=== PATIENT | female | born 1955 | race Caucasian/White ===

== ENCOUNTER 2023-03-03 06:44 | Outpatient (RCR) | payer MEDICARE, SELFPAY | END 2023-03-03 23:59 | disposition home or self-care (01) | LOC: RPT 06:44 | PROVIDERS: ATTENDING PHYSICIAN Physician Assistant Medical; FAMILY PHYSICIAN Family Medicine | DX: M54.16 Radiculopathy, lumbar region (principal); M48.062 Spinal stenosis, lumbar region with neurogenic claudication; Z98.1 Arthrodesis status | CPT/HCPCS: 97010; 97110; 97112; 97535 ==

== ENCOUNTER 2023-03-31 06:33 | Outpatient (RCR) | payer MEDICARE, SELFPAY | END 2023-04-05 23:59 | disposition home or self-care (01) | LOC: RPT 06:33 | PROVIDERS: ATTENDING PHYSICIAN Physician Assistant Medical; FAMILY PHYSICIAN Family Medicine | DX: Z47.89 Encounter for other orthopedic aftercare (principal); M54.16 Radiculopathy, lumbar region; M48.062 Spinal stenosis, lumbar region with neurogenic claudication; Z73.6 Limitation of activities due to disability; R26.2 Difficulty in walking, not elsewhere classified; M62.81 Muscle weakness (generalized); Z98.1 Arthrodesis status | CPT/HCPCS: 97010; 97110; 97112; 97535 ==

== ENCOUNTER → 2023-05-21 07:28 | Outpatient (REF) | payer MEDICARE, SELFPAY | LOC: MRI 07:28 | PROVIDERS: ATTENDING PHYSICIAN Orthopaedic Surgery Orthopaedic Surgery of the Spine; FAMILY PHYSICIAN Family Medicine | DX: M48.062 Spinal stenosis, lumbar region with neurogenic claudication (principal); M54.16 Radiculopathy, lumbar region | CPT/HCPCS: 72158; A9575 ==

== ENCOUNTER → 2023-07-02 08:24 | Outpatient (REF) | payer MEDICARE, SELFPAY | LOC: RAD 08:24 | PROVIDERS: ATTENDING PHYSICIAN Specialist; FAMILY PHYSICIAN Family Medicine | DX: M25.551 Pain in right hip (principal) | CPT/HCPCS: 73502 ==

== ENCOUNTER → 2023-07-09 07:33 | Outpatient (REF) | payer MEDICARE, SELFPAY | LOC: EMG 07:33 | PROVIDERS: ATTENDING PHYSICIAN Specialist; FAMILY PHYSICIAN Family Medicine | DX: R20.2 Paresthesia of skin (principal) | CPT/HCPCS: 95886; 95909 ==

== ENCOUNTER → 2023-12-03 07:40 | Outpatient (REF) | payer MEDICARE, SELFPAY | LOC: RAD 07:40 | PROVIDERS: ATTENDING PHYSICIAN Orthopaedic Surgery; FAMILY PHYSICIAN Family Medicine | DX: M96.0 Pseudarthrosis after fusion or arthrodesis (principal) | CPT/HCPCS: 72131 ==

== ENCOUNTER → 2024-05-22 12:42 | Outpatient (REF) | payer MEDICARE, SELFPAY | LOC: RAD 12:42 | PROVIDERS: FAMILY PHYSICIAN Family Medicine | DX: N81.2 Incomplete uterovaginal prolapse (principal) | CPT/HCPCS: 76830; 76856 ==

== ENCOUNTER 2024-08-13 13:53 | Emergency (ER) | payer MEDICARE, SELFPAY ==
[2024-08-13 14:00] VITALS: BP 185/116; BMI 19.8
[2024-08-13 14:01] VITALS: BP 185/116
[2024-08-13 14:15] LABS: % Basophils 0.3 % (0-2); % Immature Granulocytes 0.2 % (0-0.5); % Lymphocytes 9.8 % (20.5-51.1); % Monocytes 1.7 % (1.7-9.3); Absolute Lymphocytes 0.9 10^3/uL (1.2-3.4); Absolute Monocytes 0.2 10^3/uL (0.1-0.6); Absolute Neutrophils 7.8 10^3/uL (1.4-6.5); Hematocrit 42.8 % (37.0-47.0); Hemoglobin 14.5 g/dL (12.0-16.0); Mean Corp Hgb Conc. 33.9 g/dL (33.0-37.0); Mean Corpuscular Hgb 29.8 pg (27.0-31.0); Mean Corpuscular Volume 88.1 fL (81.0-99.0); Mean Platelet Volume 8.5 fL (7.4-10.4); Nucleated Red Blood Cells % 0 %; Platelet Count 274 10^3/uL (130-400); Red Blood Cell Count 4.86 10^6/uL (4.20-5.40); White Blood Cell Count 8.9 10^3/uL (4.8-10.8)
[2024-08-13 14:30] LABS: ALT (SGPT) 32 U/L (0-35); AST (SGOT) 27 U/L (14-36); Albumin 4.6 g/dl (3.5-5.0); Alkaline Phosphatase 77 U/L (38-126); Blood Urea Nitrogen 12 mg/dl (7-17); Calcium 10.5 mg/dl (8.4-10.2); Carbon Dioxide 26 mmol/L (22-30); Chloride 105 mmol/L (98-107); Estimated Creatinine Clearance 71 ml/min; Glucose 150 mg/dl (70-99); Potassium 4.5 mmol/L (3.5-5.1); Sodium 139 mmol/L (135-145); Total Bilirubin 0.6 mg/dl (0.2-1.3); Total Protein 7.3 g/dl (6.3-8.2); eGFR > 60.00
[2024-08-13 15:00] VITALS: BP 178/105
--- NOTE | 2024-08-13 15:33 | ED.MUSCINJ ---
HPI-Injury
General
Chief Complaint: Musculo-Skeletal Complaint
Source: patient
Exam Limitations: none
Time Seen by Provider: 08/13/24 15:22
Nursing documentation reviewed up to this point in time: agreed with
History of Present Illness-Injury
Is this injury a work related problem?: No
Is pt an associate of [facility]/[place]?: No
Initial Injury comments:
Patient to ED with complaint of severe pain to right postserior hip radiating to low back. No history of trauma. States pain starte 1 week ago. SHe spoke with Faraz from her spine surgeons office who placed her on short course of prednisone without
improovement. SHe was evaluatd by her PCP 2 days ago and placed on prednisone 20mg daily without improvement. Brought to ED by spouse for eval. Denies fever/chills, n/v/d. No bowel or bladder issues. No weakness in extremities, no saddle
paresthesia.
Past History
Past History
ED Past Medical History: Cancer (Tonsils, Sandra and lymphnodes), GERD, HTN, Hypercholesterolemia and Other (, migraines)
ED Past Surgical History: Cholecystectomy, Gynecological (tubel ligation) and Tonsilectomy
Patient has exhibited threatening behavior?: No
Social History
Tobacco: Non-smoker
Alcohol: None
Drug: None
Personal:
Living: alone
Employment: Employed
Family History
Family History: Negative Early CAD or CAD
Review of Systems
Review of Systems
Allergies reviewed?: Yes
All Other Systems: ROS reviewed and negative except as documented in HPI and ROS
Constitutional: Reports no symptoms
EENT: Reports no symptoms
Respiratory: Reports no symptoms
Cardiac: Reports no symptoms
ABD/GI: Reports no symptoms
: Reports no symptoms
Musculoskeletal: Reports joint pain (severe pain to right hip, low back)
Skin: Reports no symptoms
Neurological: Reports no symptoms
Psychiatric: Reports no symptoms
Musculoskeletal Injury Exam
Musculoskeletal Injury Exam
Right Posterior Hip:
Pain with Movement?: Severe
Tender to palpation?: Severe
Soft tissue swelling?: None
External deformity and angulation?: None
Joint effusion?: None
Contusion?: None
Hematoma-local bleeding into tissue?: None
Strain- Sprain- Tear (Connective tissue injury)?: None
Crepitus with movement?: No
Joint instability?: No
Malalignment/deformity?: No
Range of motion: Full
Distal skin color and temperature: normal-warm & good color
Capillary Refill: normal
Normal distal neurovascular exam?: Yes
Right Lower Back:
Pain with Movement?: Severe
Tender to palpation?: Severe
Soft tissue swelling?: None
External deformity and angulation?: None
Joint effusion?: None
Contusion?: None
Hematoma-local bleeding into tissue?: None
Strain- Sprain- Tear (Connective tissue injury)?: None
Crepitus with movement?: No
Joint instability?: No
Malalignment/deformity?: No
Range of motion: Limited
Distal skin color and temperature: normal-warm & good color
Capillary Refill: normal
Normal distal neurovascular exam?: Yes
Phy Exam
General Physical Exam
General Presentation: moderate distress
General age: appears stated age
General Skin: warm and dry
General Habitus: normal
Musculoskeletal Exam
Musculoskeletal Exam: neuro vasc intact
Skin Exam
Skin Exam: normal color, warm/dry and no rash
Psychiatric Exam
Psychiatric Exam: normal mood/affect
Injury Course
Orders/Labs/Results
Orders:
Orders
08/13/24 14:07
Complete Blood Count/With Diff Urgent
Comprehensive Metabolic Panel Urgent
08/13/24 15:30
HYDROmorphone [Dilaudid] 0.5 mg IV NOW STA
Ondansetron Injectable [Zofran] 4 mg IV NOW STA
08/13/24 15:31
CR Hip - RT w/wo Pel 2-3 Vw* Urgent
Comment:
Reason For Exam: severe pain
Include a pelvis x-ray?: Yes
Lumbar Spine Complete, 4 View [CR Lumbar Spine Comp Min 4 Vw*] Urgent
Comment:
Reason For Exam: severe pain
08/13/24 16:49
HYDROmorphone [Dilaudid] 0.5 mg IV NOW STA
08/13/24 18:34
Oxycodone/Acetaminophen [Percocet 5/325] 1 tablet PO NOW STA
Abnormal Lab Results
08/13/24
14:07
Absolute Neuts (auto) 7.8 H 10^3/uL
(1.4-6.5)
Absolute Lymphs (auto) 0.9 L 10^3/uL
(1.2-3.4)
Neutrophils % 88.0 H %
(42.2-75.2)
Lymphocytes % 9.8 L %
(20.5-51.1)
Glucose 150 H mg/dl
(70-99)
Calcium 10.5 H mg/dl
(8.4-10.2)
08/13/24 14:07
08/13/24 14:07
*Radiology
Radiology exam reviewed: radiology read reviewed
*Pulse Oximetry
Patient hypoxic: no
*Critical Care Note
Total Time (30-74mins, 75-104mins- exclusive of procedures): Not Applicable
Update Note
Update Note:
Patient to ED with complaint of pain to right posterior hip into low back. No new trauma. NO s/s cauda equina. Moving all extremities, equal strenght and sensation bilaterally. Xray without evidence of fracture. Improved with IV pain medicaion.
WIll discharge home, she will follow upw tih her back surgeon in the AM. Given short course of pain medications. Discharged home accompanied by spouse.
ED Attending Note
-
Portions of this chart may have been created with voice recognition software.� Occasional wrong word or��sound alike� substitutions may have occurred due to the inherent limitations of voice recognition software.
Discharge Plan
Departure
Patient Disposition: Home (Routine Discharge)
Date of Disposition: 08/13/24
Time of Disposition: 18:34
Patient with high blood pressure during this ER visit?: No
Condition: Good
Covid-19: Not Applicable
Discharge Problem:
Back pain
Instructions: Ibuprofen, Using Cold for Pain, Back Pain
Prescriptions:
New
oxycodone-acetaminophen [Percocet] 5-325 mg tablet
1 tab PO Q4HPRN PRN (Reason: pain) Qty: 10 0RF
No Action
temazepam 15 MG capsule
75 mg PO HS
levothyroxine 75 MCG tablet
75 mcg PO DAILY
cholecalciferol (vitamin D3) 2,000 UNIT tablet
2,000 unit PO DAILY
diazepam [Valium] 5 MG tablet
5 mg PO PRN PRN (Reason: anxiety)
epihjeb-blntvdcfzv-AOT-caff 1 EACH capsule
1 cap PO Q4HPRN PRN (Reason: Migraine)
aspirin 81 MG tablet,chewable
81 mg PO DAILY 0RF
atorvastatin [Lipitor] 20 MG tablet
20 mg PO HS Qty: 30 0RF
lisinopril [Zestril] 5 MG tablet
5 mg PO DAILY Qty: 30 0RF
pantoprazole [Protonix] 20 MG tablet,delayed release (DR/EC)
20 mg PO DAILY Qty: 14 0RF
ondansetron 4 MG tablet,disintegrating
4 mg PO TIDPRN PRN (Reason: nausea/vomiting) Qty: 10 0RF
promethazine 25 mg tablet
25 mg PO QID PRN (Reason: headache) Qty: 14 0RF
hydromorphone [Dilaudid] 2 mg tablet
2 mg PO Q6H PRN (Reason: Pain) Qty: 12 0RF
Referrals:
UNKNOWN - PT DOES,NOT KNOW [Unknown Provider]
Activity Restrictions/Additional Instructions:
Follow up with your back surgeon in the AM
Interventions
Interventions:
*Risk Screen - Suicide Last Done: 08/13/24 14:01
*General Assessment Last Done: 08/13/24 14:01
*Neglect/Abuse Screening Last Done: 08/13/24 14:01
*ED- Fall Risk Assessment Last Done: 08/13/24 14:01
*ED COVID-19 Vaccine History Last Done: 08/13/24 14:01
*Nursing Disposition Last Done: 08/13/24 18:53
ED-Musculoskeletal Assessment Last Done: 08/13/24 14:01
Discharge Date and Time
Discharge Date/Time: 08/13/24 18:53
Print Language: AUSTRIAN
[2024-08-13] MEDS: ZOFRAN 4 MG IV (15:36)
[2024-08-13] MEDS: DILAUDID 0.5 MG IV ×2 (15:36→16:52)
[2024-08-13] MEDS: PERCOCET 5/325 1 TABLET PO (18:42)
[2024-08-13 18:53] VITALS: BP 148/73
== END 2024-08-13 18:53 | disposition home or self-care (01) ==
LOC: EMR 13:53
PROVIDERS: Emergency Medicine; EMERGENCY PHYSICIAN Emergency Medicine; FAMILY PHYSICIAN Family Medicine
DX: M54.50 Low back pain, unspecified (principal); M25.551 Pain in right hip; I10 Essential (primary) hypertension; E78.00 Pure hypercholesterolemia, unspecified; G43.909 Migraine, unspecified, not intractable, without status migrainosus; K21.9 Gastro-esophageal reflux disease without esophagitis; F41.9 Anxiety disorder, unspecified; F32.A Depression, unspecified; E03.9 Hypothyroidism, unspecified; M19.90 Unspecified osteoarthritis, unspecified site; Z79.82 Long term (current) use of aspirin; Z85.89 Personal history of malignant neoplasm of other organs and systems; Z87.820 Personal history of traumatic brain injury; Z90.49 Acquired absence of other specified parts of digestive tract; Z98.1 Arthrodesis status; Z88.5 Allergy status to narcotic agent; Z88.8 Allergy status to other drugs, medicaments and biological substances
CPT/HCPCS: 99284; 96374; 96375; 96376; 72110; 73502; 80053; 85025

== ENCOUNTER → 2024-08-16 10:52 | Outpatient (REF) | payer MEDICARE, SELFPAY | LOC: HWRAD 10:52 | PROVIDERS: ATTENDING PHYSICIAN Physician Assistant; FAMILY PHYSICIAN Family Medicine | DX: M96.0 Pseudarthrosis after fusion or arthrodesis (principal); M54.16 Radiculopathy, lumbar region | CPT/HCPCS: 72131 ==

== ENCOUNTER → 2024-09-06 12:15 | Outpatient (REF) | payer MEDICARE, SELFPAY | LOC: PET 12:15 | PROVIDERS: ATTENDING PHYSICIAN Otolaryngology | DX: C02.9 Malignant neoplasm of tongue, unspecified (principal) | CPT/HCPCS: 78815; A9552 ==

== ENCOUNTER 2024-09-14 06:41 | Day surgery (SDC) | payer MEDICARE, SELFPAY ==
[2024-09-14] VITALS (7 sets, daily range): BP systolic 80–132; BP diastolic 50–89; BMI 20.3
[2024-09-14] MEDS: EMEND 40 MG PO (12:51)
[2024-09-14] MEDS: ULTRAM 50 MG PO (12:51)
[2024-09-14] MEDS: NORMOSOL-R/PLASMALYTE-A 1000 IV (12:51)
== END 2024-09-14 15:55 | disposition home or self-care (01) ==
LOC: SDS 06:41
PROVIDERS: ATTENDING PHYSICIAN Otolaryngology
DX: C02.1 Malignant neoplasm of border of tongue (principal); Z85.818 Personal history of malignant neoplasm of other sites of lip, oral cavity, and pharynx; Z92.3 Personal history of irradiation
CPT/HCPCS: 41112; 88307

== ENCOUNTER → 2024-09-29 07:24 | Outpatient (REF) | payer MEDICARE, SELFPAY | LOC: RAD 07:24 | PROVIDERS: ATTENDING PHYSICIAN Student in an Organized Health Care Education/Training Program; FAMILY PHYSICIAN Family Medicine | DX: R10.2 Pelvic and perineal pain (principal); G89.29 Other chronic pain | CPT/HCPCS: 74177; Q9967 ==

== ENCOUNTER 2024-11-30 06:12 | Day surgery (SDC) | payer MEDICARE, SELFPAY ==
[2024-11-30 07:39] VITALS: BMI 20.1
[2024-11-30 07:40] VITALS: BMI 20.1
[2024-11-30 07:41] VITALS: BP 124/84
[2024-11-30] MEDS: NORMOSOL-R/PLASMALYTE-A 1000 IV (07:53)
[2024-11-30] MEDS: EMEND 40 MG PO (08:12)
[2024-11-30] MEDS: TRANSDERM-SCOP 1 PATCH TRANSDERM (08:12)
[2024-11-30 09:35] VITALS: BP 96/62
[2024-11-30 09:45] VITALS: BP 91/65
[2024-11-30 10:00] VITALS: BP 101/73
[2024-11-30 10:10] VITALS: BP 106/72
== END 2024-11-30 10:23 | disposition home or self-care (01) ==
LOC: SDS 06:12
PROVIDERS: ATTENDING PHYSICIAN Otolaryngology
DX: C02.3 Malignant neoplasm of anterior two-thirds of tongue, part unspecified (principal)
CPT/HCPCS: 41112; 88307; 88331; 88332

== ENCOUNTER → 2025-02-09 07:20 | Outpatient (REF) | payer MEDICARE, SELFPAY | LOC: HWRAD 07:20 | PROVIDERS: ATTENDING PHYSICIAN Specialist; FAMILY PHYSICIAN Family Medicine | DX: R93.5 Abnormal findings on diagnostic imaging of other abdominal regions, including retroperitoneum (principal); K59.09 Other constipation | CPT/HCPCS: 76857 ==